=== PATIENT | male | born 1985 | race African-American/Black ===

== ENCOUNTER 2017-02-24 23:17 | Emergency (ER) | payer OTHER ==
[~2017-02-24] VITALS: Ht 182.9 cm; Wt 83.6 kg
[~2017-02-24 23:17] MED LIST: NAPROSYN500 MG PO
[2017-02-25 01:34] VITALS: BP 134/78
== END 2017-02-25 01:36 | disposition home or self-care (01) ==
LOC: EME 23:17
DX: S81.022A Laceration with foreign body, left knee, initial encounter (principal); S00.83XA Contusion of other part of head, initial encounter; Z23 Encounter for immunization; W01.198A Fall on same level from slipping, tripping and stumbling with subsequent striking against other object, initial encounter; Y93.02 Activity, running
CPT/HCPCS: 70450; 73564; 99281; 99284